=== PATIENT | female | born 1960 | race Caucasian/White ===

== ENCOUNTER → 2021-06-02 | Outpatient (CLI) | payer OTHER ==
[~2021-06-02] MED LIST: GADOTERATE 5 MMOL/10ML VIAL. INT ART ONE; IOHEXOL 300 MG/ML 50 ML VIAL. INT ART ONE; LIDOCAINE 1% Multi-Dose 20 ML VIAL. ID ONE
--- NOTE | 2021-06-02 16:09 | KCIC ---
Examination: MR arthrogram right shoulder HISTORY: History of chronic right shoulder pain COMPARISON: None available Technique: Multiplanar, multisequence MR imaging of the right shoulder performed after arthrogram inj ection FINDINGS: The long head of the biceps tendon within the bicipital groove. The attachment of the long head the b iceps tendon to the superior labral anchor grossly appears intact. The attachment of the subscapulari s tendon grossly appears intact. The attachment of the supraspinatus, infraspinatus tendon grossly ap pears intact. There is moderate increased T2 signal identified in the supraspinatus, infraspinatus te ndons likely tendinosis. Contrast appears to insinuate anterior to the supraspinatus tendon probably physiological. Diffuse attenuated appearance of the labrum likely degenerative changes. There is tammy re joint space loss identified in the right shoulder joint with near complete cartilage loss likely d egenerative changes. Large osteophyte formation identified in the inferior aspect of the humerus head . The muscle bulk grossly appears unremarkable. The acromion is type II. Moderate degenerative changes acromioclavicular joint. IMPRESSION: 1. Severe degenerative changes right shoulder joint. 2. Moderate tendinosis of the rotator cuff. 3. Moderate degenerative changes acromioclavicular joint. Electronically signed by: Asaf Doyle MD (06/02/2021 4:07 PM) [id number]
--- NOTE | 2021-06-02 16:20 | KCIC ---
Examination: Right Shoulder Arthrogram: Indications: Chronic right shoulder pain. Procedure: Risks, benefits and complications including bleeding, infection, blood vessel damage or j oint infection were discussed with the patient. Questions were answered and consent form signed. The patient was placed supine on the fluoroscopy table with the shoulder slightly externally rotated. Bony landmarks were used to plan for fluoroscopic injection. The patient was carefully prepped and draped in a sterile fashion. Using fluoroscopic guidance, local anesthetic and a 22 gauge needle th e joint space was entered. Intra-articular location was confirmed as approximately 12cc of a mixture of 5 mL lidocaine, 5 mL Omnipaque 300, 10 mL saline, 0.1 mL clariscan. The procedure was well tolerated and the patient was sent to MRI. Total fluoroscopic time 21 seconds. Total fluoroscopic images 1. Impression: Status post fluoroscopic guided arthrogram in preparation for MRI . Electronically signed by: Asaf Doyle MD (06/02/2021 4:18 PM) [id number]
== END | disposition home or self-care (01) ==
LOC: KCIC 13:01
PROVIDERS: ATTEND Family Medicine
DX: M25.511 Pain in right shoulder (principal); M19.011 Primary osteoarthritis, right shoulder
CPT/HCPCS: 23350; 73222; 77002; A9575; J3490; Q9967